=== PATIENT | female | born 1970 | race Hispanic/Latino ===

== ENCOUNTER 2018-12-28 10:22 | Outpatient (CLI) | payer MEDICARE, OTHER | END 2018-12-28 10:23 | disposition home or self-care (01) | LOC: LAB 10:22 | DX: E83.49 Other disorders of magnesium metabolism (principal); E51.8 Other manifestations of thiamine deficiency; E55.9 Vitamin D deficiency, unspecified; E56.8 Deficiency of other vitamins; D50.9 Iron deficiency anemia, unspecified; D51.3 Other dietary vitamin B12 deficiency anemia; E03.9 Hypothyroidism, unspecified; E66.01 Morbid (severe) obesity due to excess calories; E88.81 Metabolic syndrome and other insulin resistance ==